=== PATIENT | female | born 1995 | race African-American/Black ===

== ENCOUNTER 2022-09-16 09:17 | Emergency (ER) | payer MEDICAID, OTHER ==
[~2022-09-16] VITALS: Ht 167.6 cm; Wt 91.0 kg
[2022-09-16 10:37] VITALS: BP 125/67
[2022-09-16] MEDS ORDERED: DexAMETHasone SOD PHOS 10MG/1ML VIAL INJ IM ONE (11:00)
== END 2022-09-16 11:21 | disposition home or self-care (01) ==
LOC: ER 09:23
DX: L25.9 Unspecified contact dermatitis, unspecified cause (principal); L50.9 Urticaria, unspecified
CPT/HCPCS: 96372; 99283; J1100